=== PATIENT | male | born 1995 | race African-American/Black ===

== ENCOUNTER 2017-08-17 10:23 | Emergency (ER) | payer OTHER, MEDICAID ==
[2017-08-17 10:32] VITALS: BP 148/79
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
== END 2017-08-17 12:36 | disposition home or self-care (01) ==
LOC: ER 10:23
DX: M54.2 Cervicalgia (principal); M54.6 Pain in thoracic spine; M79.1 Myalgia; V89.2XXA Person injured in unspecified motor-vehicle accident, traffic, initial encounter
CPT/HCPCS: 72125; 72128; 99283

== ENCOUNTER 2017-09-29 09:37 | Emergency (ER) | payer OTHER, MEDICAID ==
[2017-09-29 10:02] VITALS: BP 122/76
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
[2017-09-29] MEDS ORDERED: ACETAMINOPHEN 325 MG TABLET PO ONE (11:19)
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
== END 2017-09-29 13:26 | disposition home or self-care (01) ==
LOC: ER 09:37
DX: S80.11XA Contusion of right lower leg, initial encounter (principal); M54.5 Low back pain; M62.830 Muscle spasm of back; M54.2 Cervicalgia; M79.604 Pain in right leg; V87.7XXA Person injured in collision between other specified motor vehicles (traffic), initial encounter; F17.200 Nicotine dependence, unspecified, uncomplicated
CPT/HCPCS: 72110; 99283

== ENCOUNTER 2018-01-20 09:05 | Emergency (ER) | payer MEDICAID, OTHER ==
[2018-01-20 09:12] VITALS: BP 126/91
[2018-01-20] MEDS ORDERED: DEXAMETHASONE SOD PHOS INJ 10 MG/1 ML VIAL IM ONE (09:28)
--- NOTE | 2018-01-20 09:32 | ER Document Report ---
HPI - HPI Pain Level: 2 Notes: Patient is a 22-year-old male with a history of hypertension who presents to the ED complaining of nasal congestion/discharge, sore throat, left ear pain 4 days. Patient states that his ear hurts the worse between that and the throat. He is still able to eat and drink, but does have a decreased p.o. intake. He is urinating normally and having normal bowel movements. Denies any drug allergies, smoking, IV drug use. No other concerns or complaints at this time. Denies any headache, fever, neck pain, changes in vision/speech/mentation/ hearing, chest pain, palpitations, syncope, cough, shortness of breath, wheeze, dyspnea, abdominal pain, nausea/vomiting/diarrhea, urinary retention, dysuria, hematuria, or rash. - ROS Systems Reviewed and Negative: Yes All other systems reviewed and negative Past Medical History - Social History Smoking Status: Never Smoker Family History: Reviewed & Not Pertinent Renal/ Medical History: Denies: Hx Peritoneal Dialysis Vertical Provider Document - CONSTITUTIONAL Agree With Documented VS: Yes Notes: PHYSICAL EXAMINATION: GENERAL: Well-appearing, well-nourished and in no acute distress. A&Ox4. Answers questions appropriately. Moves comfortably w/o notable distress HEAD: Atraumatic, normocephalic. EYES: Pupils equal round and reactive to light, extraocular movements intact, sclera anicteric, conjunctiva are normal. ENT: EAC clear b/l. Lt TM erythemic, bulging. Rt TM wnl. Nares patent and with clear discharge. oropharynx mild erythema without exudates. 2+ tonsilar hypertrophy with erythema no exudate. No palatine shift. Uvula midline. No tongue protrusion. No drooling, hoarseness, or airway compromise. Moist mucous membranes. No sinus tenderness. NECK: Normal range of motion, supple without lymphadenopathy. No rigidity/ meningismus. LUNGS: Breath sounds clear to auscultation bilaterally and equal. No wheezes rales or rhonchi. No retractions HEART: Regular rate and rhythm without murmurs, rubs, gallops. ABDOMEN: Soft, nontender, nondistended abdomen. No guarding, no rebound. No masses appreciated. Normal bowel sounds present. No CVA tenderness bilaterally. No hepatosplenomegaly. NEUROLOGICAL: Normal speech, normal gait. PSYCH: Normal mood, normal affect. SKIN: Warm, Dry, normal turgor, no rashes or lesions noted. - INFECTION CONTROL TRAVEL OUTSIDE OF THE [place] IN LAST 30 DAYS: No Course - Re-evaluation Re-evalutation: 01/20/18 09:29 Patient is an afebrile, well-hydrated, 22-year-old male who presents to the ED with acute otitis media of the left ear as well as an acute pharyngitis. Vitals are acceptable. PE is otherwise unremarkable. Patient does not have any significant tachycardia, tachypnea, or hypoxia. He is nontoxic-appearing and is tolerating p.o. without difficulties. Decadron given IM today. I will not be testing for strep at this time as I will be covering him for his ear infection which will ultimately cover strep. No other labs or imaging warranted at this time based on H&P. Low suspicion for any meningitis, sepsis, peritonsillar/pharyngeal abscess, respiratory compromise, Tucker's, or other emergent systemic condition at this time. Patient is aware this condition can change from initial presentation and he needs to monitor symptoms closely. Rx for amoxicillin. Conservative measures otherwise for symptoms. Recheck with your PCM in 3-5 days. Return to the ED with any worsening/concerning symptoms otherwise as reviewed in discharge. Patient is in agreement. - Vital Signs Vital signs: Temp Pulse Resp BP Pulse Ox 98.8 F 92 16 126/91 H 97 01/20/18 09:11 01/20/18 09:11 01/20/18 09:11 01/20/18 09:11 01/20/18 09:11 Discharge - Discharge Clinical Impression: Acute otitis media Qualifiers: Otitis media type: unspecified Qualified Code(s): H66.90 - Otitis media, unspecified, unspecified ear Acute pharyngitis Qualifiers: Pharyngitis/tonsillitis etiology: unspecified etiology Qualified Code(s): J02.9 - Acute pharyngitis, unspecified Condition: Stable Disposition: HOME, SELF-CARE Instructions: Otitis Media ([facility]), Sore Throat ([facility]) Additional Instructions: Maintain adequate fluid intake Take meds as directed Salt water gargles, throat sprays, mouthwash rinse, peroxide gargles tylenol/ibuprofen as needed Keep ears clean, avoid q-tips inside of ears New toothbrush tomorrow evening over the counter cold medication as needed for symptoms F/u: with your PCM in 3-5 days for a recheck Consider consult with ENT for ongoing/worsening symptoms Return to the ED with any fever, worsening pain, chest pain, neck pain/stiffness , shortness of breath, cough, drooling, trouble swallowing/breathing, abdominal pain, n/v/d, rash, or worsening/concerning symptoms otherwise. Prescriptions: Amoxicillin Trihydrate [Amoxil 875 mg Tablet] 1 tab PO BID #20 tablet Forms: Elevated Blood Pressure Referrals: KAREEN EVANS DO [ASSOCIATE] - Follow up as needed JAKUB ARBOLEDA DO [Primary Care Provider] - Follow up in 3-5 days
== END 2018-01-20 09:50 | disposition home or self-care (01) ==
LOC: ER 09:05
DX: H66.92 Otitis media, unspecified, left ear (principal); J02.9 Acute pharyngitis, unspecified; R09.81 Nasal congestion; I10 Essential (primary) hypertension
CPT/HCPCS: 99282; 96372; J1100

== ENCOUNTER 2018-04-14 21:52 | Emergency (ER) | payer MEDICAID, OTHER ==
[~2018-04-14 21:52] MED LIST: ROCURONIUM BROMIDE INJ 50 MG/5 ML VIAL IV ONE
[2018-04-14] MEDS ORDERED: PROPOFOL 1,000 MG/100 ML INFUS..BTL IV ONE (22:10)
[2018-04-14] MEDS ORDERED: NORMAL SALINE 1000 ML 1,000 ML IV ONE (22:26)
[2018-04-14] MEDS ORDERED: KETAMINE HCL INJ 500 MG/10 ML VIAL IV ONE ×2 (22:27→23:40)
[2018-04-14] MEDS ORDERED: PROPOFOL 1,000 MG/100 ML INFUS..BTL IV PRN (22:27)
[2018-04-14 22:46] LABS: HEMATOCRIT 49.9 % (37.9-51.0); HEMOGLOBIN 16.1 g/dL (13.5-17.0); MEAN CORPUSCULAR HEMOGLOBIN 27.6 pg (27.0-33.4); MEAN CORPUSCULAR HGB CONC 32.3 g/dL (32.0-36.0); MEAN CORPUSCULAR VOLUME 85 fl (80-97); PLATELET COUNT 299 10^3/uL (150-450); RED BLOOD COUNT 5.85 10^6/uL (4.35-5.55); RED CELL DISTRIBUTION WIDTH 14.4 % (11.5-14.0); WHITE BLOOD COUNT 21.6 10^3/uL (4.0-10.5)
[2018-04-14 22:54] LABS: ALANINE AMINOTRANSFERASE 81 U/L (21-72); ALBUMIN 4.7 g/dL (3.5-5.0); ALKALINE PHOSPHATASE 77 U/L (38-126); ASPARTATE AMINO TRANSFERASE 140 U/L (17-59); BILIRUBIN,DIRECT 0.4 mg/dL (0.0-0.4); BILIRUBIN,TOTAL 0.4 mg/dL (0.2-1.3); BLOOD UREA NITROGEN 14 mg/dL (7-20); CALCIUM 9.8 mg/dL (8.4-10.2); GLUCOSE 159 mg/dL (75-110); TOTAL PROTEIN 8.1 g/dL (6.3-8.2)
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
[2018-04-14 23:03] LABS: ABSOLUTE LYMPHOCYTES# (MANUAL) 7.1 10^3/uL (0.5-4.7); ABSOLUTE MONOCYTES # (MANUAL) 1.1 10^3/uL (0.1-1.4); BAND NEUTROPHILS % (MANUAL) 1 % (3-5); BASOPHILS % (MANUAL) 0 % (0-2); EOSINOPHILS % (MANUAL) 2 % (0-6); LYMPHOCYTES % (MANUAL) 31 % (13-45); MONOCYTES % (MANUAL) 5 % (3-13); SEGMENTED NEUTROPHILS % (MAN) 59 % (42-78); TOTAL CELLS COUNTED 100
[2018-04-14 23:06] LABS: ANISOCYTOSIS SLIGHT; PLATELET COMMENT ADEQUATE; TOXIC GRANULATION SLIGHT
[2018-04-14 23:07] LABS: CARBON DIOXIDE 13 mmol/L (22-30); CHLORIDE 104 mmol/L (98-107); POTASSIUM 3.8 mmol/L (3.6-5.0); SODIUM 142.5 mmol/L (137-145)
[2018-04-14 23:08] LABS: ALCOHOL < 10 mg/dL (NONE DETECTED); ANION GAP 26 (5-19)
[2018-04-14] MEDS ORDERED: LEVETIRACETAM 1000 MG/NACL-ISO 1,000 MG/100 ML RTUPB IV ONE ×2 (23:13→23:14)
[2018-04-14] MEDS ORDERED: KETAMINE HCL INJ 500 MG/10 ML VIAL IM ONE (23:16)
[2018-04-14] MEDS ORDERED: LEVETIRACETAM INJ/PF 500 MG/5 ML SDV IV ONE (23:17)
--- NOTE | 2018-04-14 23:22 | RADIOLOGY REPORT (SQ) ---
PROCEDURE: XR CHEST 1 VIEW HISTORY: intubated COMPARISON: None TECHNIQUE: The study was done on 04/14/2018 at 10:19 PM Single projection of the chest was done. FINDINGS: The tip of the endotracheal tube is at the mana and needs to be retracted for approximately 2 cm. The tip of the orogastric tube terminates in the fundus of the stomach . There are no discrete airspace infiltrates, pneumothoraces or pleural effusions. The pulmonary vascularity is normal. The cardiomediastinal silhouette is unremarkable for patient's age and sex. IMPRESSION: The tip of the endotracheal tube is at the mana and needs to be retracted for approximately 2 cm. The tip of the orogastric tube terminates in the fundus of the stomach . There is no acute pleural-parenchymal process seen in the imaged lung medina.
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
[2018-04-14] MEDS ORDERED: KETAMINE HCL INJ 500 MG/10 ML VIAL ONE (23:38)
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
[2018-04-15 06:18] VITALS: BP 154/97
== END 2018-04-14 23:30 | disposition short-term general hospital (02) ==
LOC: ER 21:52
PROC: 0BH17EZ Insertion of Endotracheal Airway into Trachea, Via Natural or Artificial Opening (ICD-10-PCS; principal; 2018-04-14)
DX: S09.90XA Unspecified injury of head, initial encounter (principal); R41.82 Altered mental status, unspecified; R22.0 Localized swelling, mass and lump, head; R04.0 Epistaxis; R00.0 Tachycardia, unspecified; V87.7XXA Person injured in collision between other specified motor vehicles (traffic), initial encounter
CPT/HCPCS: 99291; 96360; 86900; 86901; 36415; 86850; 80307; 85025; 80053; 71045; 70450; 70486; 71260; 72125; 74177; 31500; J3490 ×2; J2704; J7030

== ENCOUNTER 2018-06-07 07:06 | Emergency (ER) | payer MEDICAID ==
[2018-06-07 07:12] VITALS: BP 142/81
[2018-06-07] MEDS ORDERED: IBUPROFEN 800 MG TABLET PO ONE (07:33)
--- NOTE | 2018-06-07 07:33 | ER Document Report ---
HPI - HPI Patient complains to provider of: Sore throat Pain Level: 4 Context: Patient is a 23-year-old male presenting to the emergency department complaining of a sore throat. Patient states for the last 3 days he has had a sore throat, cough, and congestion. Patient denies fever, nausea, vomiting, diarrhea. Patient states he has been taking TheraFlu for the discomfort, states last time he took it was 2200 hrs. last night. Patient denies shortness of breath, chest pain, abdominal pain. Past medical history: ADHD, bipolar, hypertension Medications: Lisinopril, Lamictal, Vyvanse Allergies: None Surgical history: None Patient denies illicit drug use, denies EtOH use, denies smoking cigarettes. - CONSTITUTIONAL Constitutional: DENIES: Fever, Chills - EENT EENT: REPORTS: Sore Throat - NEURO Neurology: DENIES: Headache - RESPIRATORY Respiratory: REPORTS: Coughing - GASTROINTESTINAL Gastrointestinal: DENIES: Abdominal Pain Past Medical History - General Information source: Patient - Social History Smoking Status: Never Smoker Chew tobacco use (# tins/day): No Frequency of alcohol use: None Drug Abuse: None Lives with: Family Family History: Reviewed & Not Pertinent Patient has suicidal ideation: No Patient has homicidal ideation: No - Past Medical History Cardiac Medical History: Reports: Hx Hypertension Renal/ Medical History: Denies: Hx Peritoneal Dialysis Psychiatric Medical History: Reports: Hx Attention Deficit Hyperactivity Disorder, Hx Bipolar Disorder Vertical Provider Document - CONSTITUTIONAL Agree With Documented VS: Yes Notes: GENERAL: Alert, interacts well. No acute distress. HEAD: Normocephalic, atraumatic. EYES: Pupils equal, round, and reactive to light. Extraocular movements intact. ENT: Oral mucosa moist, tongue midline. Nares patent, swollen turbinates bilaterally, TM's intact, no erythema or bulging. Tonsils +2 bilaterally, minor erythema noted, no palatal petechiae or exudate noted NECK: Full range of motion. Supple. Trachea midline. No lymphadenopathy appreciated LUNGS: Clear to auscultation bilaterally, no wheezes, rales, or rhonchi. No respiratory distress. HEART: Regular rate and rhythm. No murmur ABDOMEN: Soft, non-tender. Non-distended. Bowel sounds present in all 4 quadrants. EXTREMITIES: Moves all 4 extremities spontaneously. No edema, normal radial and dorsalis pedis pulses bilaterally. No cyanosis. BACK: no cervical, thoracic, lumbar midline tenderness. No saddle anesthesia, normal distal neurovascular exam. NEUROLOGICAL: Alert and oriented x3. Normal speech. cranial nerves II through XII grossly intact. PSYCH: Normal affect, normal mood. SKIN: Warm, dry, normal turgor. No rashes or lesions noted. - INFECTION CONTROL TRAVEL OUTSIDE OF THE [place] IN LAST 30 DAYS: No Course - Re-evaluation Re-evalutation: 06/07/18 08:12 rapid strep negative. Will treat for swollen turbinates and cough. Discussed viral pharyngitis with patient at bedside. Discussed return precautions. - Vital Signs Vital signs: Temp Pulse Resp BP Pulse Ox 97.7 F 84 18 142/81 H 97 06/07/18 07:10 06/07/18 07:10 06/07/18 07:10 06/07/18 07:10 06/07/18 07:10 Discharge - Discharge Clinical Impression: Upper respiratory infection Qualifiers: URI type: unspecified viral URI Qualified Code(s): J06.9 - Acute upper respiratory infection, unspecified Pharyngitis Qualifiers: Pharyngitis/tonsillitis etiology: unspecified etiology Qualified Code(s): J02.9 - Acute pharyngitis, unspecified Condition: Stable Disposition: HOME, SELF-CARE Instructions: Sore Throat ([facility]), Upper Respiratory Illness ([facility]), Viral Syndrome ([facility]) Additional Instructions: As we discussed your rapid strep test was negative for bacteria. This means it is viral pharyngitis. Viruses do not respond to antibiotics. Please take cough medicine and nasal spray as directed. Please return to the emergency room for any other worsening symptom. Please make an appointment with your primary care provider in the next 24-48 hours. Prescriptions: Benzonatate [Tessalon Perles 100 mg Capsule] 100 mg PO Q8HP PRN #40 capsule PRN Reason: Mometasone Furoate [Nasonex] 1 spray NS Q12 #1 spray.pump Referrals: JAKUB ARBOLEDA DO [Primary Care Provider] - Follow up as needed
== END 2018-06-07 08:15 | disposition home or self-care (01) ==
LOC: ER 07:06
DX: J06.9 Acute upper respiratory infection, unspecified (principal); B97.89 Other viral agents as the cause of diseases classified elsewhere; J02.9 Acute pharyngitis, unspecified; R05 Cough; I10 Essential (primary) hypertension; F90.9 Attention-deficit hyperactivity disorder, unspecified type; F31.9 Bipolar disorder, unspecified; Z79.899 Other long term (current) drug therapy
CPT/HCPCS: 99283; 87070; 87880; J3490

== ENCOUNTER 2019-02-16 00:29 | Emergency (ER) | payer MEDICAID ==
--- NOTE | 2019-02-16 01:14 | ER Document Report ---
ED General - General Chief Complaint: Sore Throat Stated Complaint: SORE THROAT Time Seen by Provider: 02/16/19 01:03 Primary Care Provider: JAKUB ARBOLEDA DO [Primary Care Provider] - Follow up as needed TRAVEL OUTSIDE OF THE [place] IN LAST 30 DAYS: No - HPI Notes: 23-year-old male to the emergency department with complaints of sore throat for the past week. He also admits to bilateral ear pain and enlarged lymph nodes. He does endorse a slight cough but predominantly his throat is been bothering him. He denies any fevers. He reports that his mother has had strep throat. Denies any other complaints. Denies any voice changes, drooling, difficulty swallowing, shortness of breath. - Related Data Allergies/Adverse Reactions: No Known Allergies Allergy (Verified 02/16/19 00:30) Past Medical History - General Information source: Patient - Social History Smoking Status: Never Smoker Chew tobacco use (# tins/day): No Frequency of alcohol use: None Drug Abuse: None Family History: Reviewed & Not Pertinent Patient has suicidal ideation: No Patient has homicidal ideation: No - Past Medical History Cardiac Medical History: Reports: Hx Hypertension Renal/ Medical History: Denies: Hx Peritoneal Dialysis Psychiatric Medical History: Reports: Hx Attention Deficit Hyperactivity Disorder, Hx Bipolar Disorder Review of Systems - Review of Systems Constitutional: denies: Chills, Fever EENT: Ear pain, Throat pain. denies: Nose congestion Cardiovascular: denies: Chest pain, Dizziness, Lightheaded, Edema Respiratory: Cough. denies: Short of breath Gastrointestinal: denies: Abdominal pain, Diarrhea, Nausea, Vomiting Genitourinary: No symptoms reported Skin: No symptoms reported Neurological/Psychological: No symptoms reported -: Yes All other systems reviewed and negative Physical Exam - Vital signs Vitals: Temp Pulse Resp BP Pulse Ox 97.5 F 98 20 142/91 H 99 02/16/19 00:32 02/16/19 00:32 02/16/19 00:32 02/16/19 00:32 02/16/19 00:32 Interpretation: Hypertensive - General General appearance: Appears well In distress: None Notes: Obesity - HEENT Head: Normocephalic Eyes: Normal Cornea: Normal Pupils: PERRL Ears: Normal External canal: Normal Tympanic membrane: Normal Sinus: Normal Nasal: Normal Mouth/Lips: Normal Mucous membranes: Normal Pharynx: Erythema, Exudate, Tonsillar hypertrophy - There is symmetric bilateral tonsillar hypertrophy, 2+. There is no evidence of peritonsillar abscess. There is noted beefy erythema with exudate to bilateral tonsils. There is no drooling. No hot potato voice. No Tucker's angina. Airway is grossly patent. No: Peritonsillar abscess, Post nasal drainage, Retropharyngeal abscess, Uvular edema Neck: Other - Positive bilateral tender anterior lymphadenopathy. No meningeal signs. - Respiratory Respiratory status: No respiratory distress Chest status: Nontender Breath sounds: Normal. No: Rales, Rhonchi, Stridor, Wheezing Chest palpation: Normal - Cardiovascular Rhythm: Regular Heart sounds: Normal auscultation Murmur: No - Neurological Neuro grossly intact: Yes Cognition: Normal Orientation: AAOx4 [place] Coma Scale Eye Opening: Spontaneous [place] Coma Scale Verbal: Oriented [place] Coma Scale Motor: Obeys Commands [place] Coma Scale Total: 15 Speech: Normal Motor strength normal: LUE, RUE, LLE, RLE Sensory: Normal - Psychological Associated symptoms: Normal affect, Normal mood - Skin Skin Temperature: Warm Skin Moisture: Dry Skin Color: Normal Course - Vital Signs Vital signs: Temp Pulse Resp BP Pulse Ox 97.5 F 98 20 142/91 H 99 02/16/19 00:32 02/16/19 00:32 02/16/19 00:32 02/16/19 00:32 02/16/19 00:32 - Transfer of Care Notes: 02/16/19 01:25 Impression: Strep throat. Given patient's exam and his history to include a positive sick contact do not think he needs testing today and we will go ahead and treat. We will also write for Motrin and a Medrol Dosepak. There is no evidence for peritonsillar abscess and no Tucker's angina. Encouraged to return if any worsening shortness of breath, difficulty swallowing, drooling, or any other concerns. Patient agrees with the plan. Will discharge home Discharge - Discharge Clinical Impression: Strep throat, Sore throat, Elevated blood pressure reading Condition: Stable Disposition: HOME, SELF-CARE Instructions: Strep Throat ([facility]) Additional Instructions: COMPLETE ALL ANTIBIOTICS. RETURN IF WORSE -- IF YOU HAVE WORSENING SORE THROAT, DROOLING, OR DIFFICULTY SWALLOWING, OR SHORTNESS OF BREATH. FOLLOW UP WITH PRIMARY CARE. Prescriptions: Ibuprofen [Motrin 600 mg Tablet] 600 mg PO Q8HP PRN #20 tablet PRN Reason: Amoxicillin Trihydrate [Amoxil 875 mg Tablet] 1 tab PO BID #20 tablet Methylprednisolone [Medrol Dosepack (4 mg/Tab) 21 Tab/Dosepak] 4 mg PO ASDIR PRN #21 tab.ds.pk PRN Reason: Forms: Return to Work Referrals: JAKUB ARBOLEDA DO [Primary Care Provider] - Follow up in 1 week
[2019-02-16 01:30] VITALS: BP 138/89
== END 2019-02-16 01:29 | disposition home or self-care (01) ==
LOC: ER 00:29
DX: J02.0 Streptococcal pharyngitis (principal); R03.0 Elevated blood-pressure reading, without diagnosis of hypertension; H92.03 Otalgia, bilateral; R59.9 Enlarged lymph nodes, unspecified; R05 Cough
CPT/HCPCS: 99282

== ENCOUNTER 2019-09-03 21:15 | Emergency (ER) | payer MEDICAID, OTHER ==
[2019-09-03 21:30] VITALS: BP 135/99
[2019-09-03] MEDS ORDERED: ONDANSETRON 4 MG TAB.RAPDIS PO ONE (21:53)
[2019-09-03] MEDS ORDERED: KETOROLAC TROMETHAMINE 60 MG/2 ML SDV IM ONE (21:54)
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
[2019-09-03 22:26] LABS: ABSOLUTE BASOPHILS # (AUTO) 0.1 10^3/uL (0.0-0.2); ABSOLUTE LYMPHOCYTES (AUTO) 0.9 10^3/uL (0.5-4.7); ABSOLUTE MONOCYTES (AUTO) 0.2 10^3/uL (0.1-1.4); ABSOLUTE NEUT (AUTO) 7.9 10^3/uL (1.7-8.2); BASOPHILS % (AUTO) 0.6 % (0-2); HEMATOCRIT 48.7 % (37.9-51.0); HEMOGLOBIN 16.6 g/dL (13.5-17.0); LYMPHOCYTES % (AUTO) 10.1 % (13-45); MEAN CORPUSCULAR HEMOGLOBIN 27.5 pg (27.0-33.4); MEAN CORPUSCULAR HGB CONC 34.2 g/dL (32.0-36.0); MEAN CORPUSCULAR VOLUME 80 fl (80-97); MONOCYTES % (AUTO) 2.6 % (3-13); PLATELET COUNT 232 10^3/uL (150-450); RED BLOOD COUNT 6.06 10^6/uL (4.35-5.55); SEGMENTED NEUTROPHILS % (AUTO) 86.7 % (42-78); TOTAL CELLS COUNTED % (AUTO) 100 %; WHITE BLOOD COUNT 9.2 10^3/uL (4.0-10.5)
[2019-09-03 22:45] LABS: ALBUMIN 4.4 g/dL (3.5-5.0); ALKALINE PHOSPHATASE 103 U/L (38-126); ANION GAP 11 (5-19); ASPARTATE AMINO TRANSFERASE 21 U/L (17-59); BILIRUBIN,DIRECT 0.3 mg/dL (0.0-0.4); BILIRUBIN,TOTAL 0.5 mg/dL (0.2-1.3); BLOOD UREA NITROGEN 18 mg/dL (7-20); CALCIUM 10.1 mg/dL (8.4-10.2); CARBON DIOXIDE 25 mmol/L (22-30); CHLORIDE 102 mmol/L (98-107); GLUCOSE 123 mg/dL (75-110); TOTAL PROTEIN 8.2 g/dL (6.3-8.2)
--- NOTE | 2019-09-03 22:54 | RADIOLOGY REPORT (SQ) ---
EXAM DESCRIPTION: PA and lateral radiographs of the chest CLINICAL HISTORY: 24 years Male, cp COMPARISON: [facility] portable chest 04/14/2018 FINDINGS: Lungs: Lungs are clear. No pleural effusion. No pneumothorax. Mediastinum: Cardiac and mediastinal silhouette are normal. Bones: Fracture of the right clavicle is noted with marked inferior displacement of the distal clavicle with respect to the proximal clavicle. IMPRESSION: 1. No acute process within the chest. 2. Right clavicle fracture with marked displacement.
--- NOTE | 2019-09-04 10:39 | EKG REPORT ---
SEVERITY:- NORMAL ECG - SINUS RHYTHM : Confirmed by: Candelario Epperson MD 04-Sep-2019 10:39:42
== END 2019-09-04 00:29 | disposition left against medical advice (07) ==
LOC: ER 21:15
DX: Z53.21 Procedure and treatment not carried out due to patient leaving prior to being seen by health care provider (principal); R07.9 Chest pain, unspecified; M54.9 Dorsalgia, unspecified; I10 Essential (primary) hypertension
CPT/HCPCS: 93005; 99281; 96372; 36415; 85025; 80053; 84484; 71046; 93010; J1885; S0119

== ENCOUNTER 2020-05-21 06:10 | Emergency (ER) | payer MEDICAID ==
[2020-05-21 07:00] LABS: A TYPE INFLUENZA AG NEGATIVE (NEGATIVE)
[2020-05-21 07:01] LABS: B INFLUENZA AG NEGATIVE (NEGATIVE)
--- NOTE | 2020-05-21 08:12 | ER Document Report ---
ED General - General Chief Complaint: Flu Symptoms Stated Complaint: COUGH,CONGESTION,SHORTNESS OF BREATH Time Seen by Provider: 05/21/20 08:06 TRAVEL OUTSIDE OF THE [place] IN LAST 30 DAYS: No - HPI Notes: 25-year-old male with past medical history of hypertension and depression to the emergency department with complaints of 4 days of cough, sore throat, body aches, shortness of breath. He denies any fevers, chills, chest pain, leg swelling, nausea, vomiting, abdominal pain. He states that he has not been around anybody is tested positive for COVID-19. Is not currently working. He does admit that he has not been wearing a mask at a public. He states that his throat hurts the worst. He took TheraFlu last night but still is feeling pretty poorly. The patient was evaluated during the global COVID 19 pandemic, and that diagnosis was suspected/considered upon their initial presentation. Their evaluation, treatment, and testing was consistent with current guidelines for patients who present with complaints or symptoms that may be related to COVID- 19. - Related Data Allergies/Adverse Reactions: No Known Allergies Allergy (Verified 03/09/19 07:53) Home Medications: lisinopril. sinus medicine Past Medical History - General Information source: Patient - Social History Smoking Status: Former Smoker Chew tobacco use (# tins/day): No Frequency of alcohol use: None Drug Abuse: Marijuana Family History: Reviewed & Not Pertinent Patient has homicidal ideation: No - Past Medical History Cardiac Medical History: Reports: Hx Hypertension Renal/ Medical History: Denies: Hx Peritoneal Dialysis Psychiatric Medical History: Reports: Hx Attention Deficit Hyperactivity Disorder, Hx Bipolar Disorder Traumatic Medical History: Reports: Hx Fractures Review of Systems - Review of Systems Constitutional: Malaise, Other - Body aches. denies: Chills, Fever EENT: Nose congestion, Nose discharge, Throat pain. denies: Ear pain, Throat swelling Cardiovascular: denies: Chest pain, Palpitations, Heart racing, Orthopnea, Dyspnea, Syncope, Lightheaded Respiratory: Cough, Short of breath. denies: Hurts to breathe, Wheezing Gastrointestinal: denies: Abdominal pain, Diarrhea, Nausea, Vomiting Genitourinary: No symptoms reported Musculoskeletal: Muscle pain - Body aches. denies: Back pain Skin: No symptoms reported Hematologic/Lymphatic: No symptoms reported Neurological/Psychological: Headaches -: Yes All other systems reviewed and negative Physical Exam - Vital signs Vitals: Temp Pulse Resp BP Pulse Ox 98.5 F 85 20 142/87 H 99 05/21/20 06:22 05/21/20 06:22 05/21/20 06:22 05/21/20 06:22 05/21/20 06:22 Interpretation: Normal - General General appearance: Appears well, Alert In distress: None Notes: Massively obese - HEENT Head: Normocephalic, Atraumatic Eyes: Normal Pupils: PERRL Ears: Normal External canal: Normal. No: Blood in canal, Cerumen impaction, Erythema Tympanic membrane: Normal. No: Bulging, Hemotympanum, Perforation Sinus: Normal Nasal: Other - Clear rhinorrhea Mouth/Lips: Normal. No: Angioedema, Caries Mucous membranes: Normal Pharynx: Erythema, Exudate - To the posterior oropharynx there is erythema with symmetric tonsillar hypertrophy is about 1+ with exudates. No uvular edema. No [place]anaco's angina. No hot potato voice. No evidence for peritonsillar abscess. Airway is grossly patent., Tonsillar hypertrophy. No: Peritonsillar abscess, Uvular edema, Potential airway comprom. Neck: Normal, Supple. No: Lymphadenopathy - Respiratory Respiratory status: No respiratory distress Chest status: Nontender. No: Accessory muscle use, Prolonged expirations Breath sounds: Normal, Nonproductive cough. No: Rales, Rhonchi, Wheezing Chest palpation: Normal - Cardiovascular Rhythm: Regular Heart sounds: Normal auscultation Murmur: No Notes: No leg edema - Abdominal Inspection: Normal, Morbidly Obese Distension: No distension Bowel sounds: Normal Tenderness: Nontender. 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 No: Pronator drift Sensory: Normal - Psychological Associated symptoms: Normal affect, Normal mood - Skin Skin Temperature: Warm Skin Moisture: Dry Skin Color: Normal Course - Re-evaluation Re-evalutation: 05/21/20 09:40 Patient was provided with discharge information including: As a person under investigation for COVID-19, [facility], division of public health advises you to adhere to the following guidance until your test results are reported to you. If your test result is positive, you will receive additional information from your provider and your local health department at that time. Remain at home until you are cleared by the healthcare provider public health authorities. Keep a log of visitors to your home and notify any visitors to your home of your isolation status. If you plan to move to a new address or leave the country, notify the local health department and your County. Call your doctor or seek care if you have an urgent medical need. Before seeking medical care, call ahead to get instructions from the provider before arriving at the medical office, clinic, or hospital. Notify them that you are being tested for the virus that causes COVID-19 so that arrangements can be made, as necessary, to prevent transmission to others in the healthcare setting. Next, notify the local health department and your County. If a medical emergency arises and you need to call 911, informed the first responders that you are being tested for the virus that causes COVID-19. Next, notified the [facility] department and your County. Impression: Tonsillitis, cough, body aches. Patient exhibits a flulike syndrome. He was tested for COVID. His oropharyngeal exam is consistent with an acute tonsillitis so we will start on azithromycin. He is encouraged to return if he gets worse. Have given him specific instructions on COVID-19 and that he will need to quarantine for the next 2 weeks. Patient agrees with the plan. Will discharge home. Labs are reassuring, vital signs are stable. Chest x-ray negative. - Vital Signs Vital signs: Temp Pulse Resp BP Pulse Ox 98.3 F 85 20 142/87 H 99 05/21/20 06:24 05/21/20 06:22 05/21/20 06:22 05/21/20 06:22 05/21/20 06:22 - Laboratory Result Diagrams: 05/21/20 08:40 05/21/20 08:40 Laboratory results interpreted by me: 05/21/20 08:40 RBC 5.57 H Laboratory 05/21/20 05/21/20 05/21/20 06:30 06:30 08:40 WBC 5.9 RBC 5.57 H Hgb 15.6 Hct 45.7 MCV 82 MCH 28.0 MCHC 34.2 RDW 13.5 Plt Count 186 Lymph % (Auto) 19.8 [place] % (Auto) 5.6 Eos % (Auto) 1.3 Baso % (Auto) 0.7 Absolute Neuts (auto) 4.3 Absolute Lymphs (auto) 1.2 Absolute Monos (auto) 0.3 Absolute Eos (auto) 0.1 Absolute Basos (auto) 0.0 Seg Neutrophils % 72.6 Sodium Potassium Chloride Carbon Dioxide Anion Gap BUN Creatinine Est GFR ( Amer) Est GFR (MDRD) Non-Af Glucose Calcium Total Bilirubin Direct Bilirubin Neonat Total Bilirubin Neonat Direct Bilirubin Neonat Indirect Bili AST ALT Alkaline Phosphatase Total Protein Albumin Influenza A (Rapid) NEGATIVE Influenza B (Rapid) NEGATIVE Group A Strep Rapid NEGATIVE 05/21/20 08:40 WBC RBC Hgb Hct MCV MCH MCHC RDW Plt Count Lymph % (Auto) [place] % (Auto) Eos % (Auto) Baso % (Auto) Absolute Neuts (auto) Absolute Lymphs (auto) Absolute Monos (auto) Absolute Eos (auto) Absolute Basos (auto) Seg Neutrophils % Sodium 137.7 Potassium 4.5 Chloride 103 Carbon Dioxide 26 Anion Gap 9 BUN 15 Creatinine 0.91 Est GFR ( Amer) > 60 Est GFR (MDRD) Non-Af > 60 Glucose 105 Calcium 9.5 Total Bilirubin 0.5 Direct Bilirubin 0.2 Neonat Total Bilirubin Not Reportable Neonat Direct Bilirubin Not Reportable Neonat Indirect Bili Not Reportable AST 22 ALT 18 Alkaline Phosphatase 74 Total Protein 7.1 Albumin 4.2 Influenza A (Rapid) Influenza B (Rapid) Group A Strep Rapid Chest X-Ray 05/21/20 00:00 IMPRESSION: NO ACUTE RADIOGRAPHIC FINDING IN THE CHEST. - Diagnostic Test Radiology reviewed: Image reviewed, Reports reviewed Discharge - Discharge Clinical Impression: Sore throat, Cough Acute tonsillitis Qualifiers: Pharyngitis/tonsillitis etiology: unspecified etiology Qualified Code(s): J03.90 - Acute tonsillitis, unspecified Condition: Stable Disposition: HOME, SELF-CARE Instructions: COVID-19 Guidance for Persons Under Investigation, Azithromycin ([facility]), Tonsillitis ([facility]) Additional Instructions: You are seen in the emergency department today for upper respiratory symptoms to include a sore throat, cough. He had a negative chest x-ray for any pneumonia. Your flu and rapid strep were all negative. Your exam suggests an acute tonsillitis. You will be given azithromycin, an antibiotic for this. You were swapped for COVID-19. These results will come back in approximately 4 days. You will need to quarantine and make sure you are aggressively masking yourself. Return if you have worsening symptoms. Obtain a pulse oximeter from local pharmacy and monitor your oxygen level. If you see that your oxygen is going below 92% please return to the emergency department. As a person under investigation for COVID-19, [facility], division of public health advises you to adhere to the following guidance until your test results are reported to you. If your test result is positive, you will receive additional information from your provider and your local health department at that time. Remain at home until you are cleared by the healthcare provider public health authorities. Keep a log of visitors to your home and notify any visitors to your home of your isolation status. If you plan to move to a new address or leave the country, notify the local health department and your County. Call your doctor or seek care if you have an urgent medical need. Before seeking medical care, call ahead to get instructions from the provider before ar riving at the medical office, clinic, or hospital. Notify them that you are being tested for the virus that causes COVID-19 so that arrangements can be made, as necessary, to prevent transmission to others in the healthcare setting. Next, notify the local health department and your County. If a medical emergency arises and you need to call 911, informed the first responders that you are being tested for the virus that causes COVID-19. Next, notified the [facility] health department and your County. Prescriptions: Ibuprofen [Motrin 600 mg Tablet] 600 mg PO Q8HP PRN #24 tablet PRN Reason: Benzonatate [Tessalon Perles 100 mg Capsule] 200 mg PO Q8HP PRN #40 capsule PRN Reason: Azithromycin 500 mg PO DAILY #5 tablet Referrals: [facility] [Outside] - Follow up in 1 week (for follow up)
[2020-05-21] MEDS ORDERED: DEXAMETHASONE CONC 1 MG/ML SOLN PO ONE (08:28)
[2020-05-21] MEDS ORDERED: KETOROLAC TROMETHAMINE 60 MG/2 ML SDV IM ONE (08:28)
--- NOTE | 2020-05-21 08:38 | RADIOLOGY REPORT (SQ) ---
EXAM DESCRIPTION: CHEST SINGLE VIEW IMAGES COMPLETED DATE/TIME: 05/21/2020 7:52 am REASON FOR STUDY: cough COMPARISON: 09/03/2019 EXAM PARAMETERS: NUMBER OF VIEWS: One view. TECHNIQUE: Single frontal radiographic view of the chest acquired. RADIATION DOSE: NA LIMITATIONS: None. FINDINGS: LUNGS AND PLEURA: No opacities, masses or pneumothorax. No pleural effusion. MEDIASTINUM AND HILAR STRUCTURES: No masses. Contour normal. HEART AND VASCULAR STRUCTURES: Heart normal in size. Normal vasculature. BONES: No acute findings. HARDWARE: None in the chest. OTHER: No other significant finding. IMPRESSION: NO ACUTE RADIOGRAPHIC FINDING IN THE CHEST. TECHNICAL DOCUMENTATION: JOB ID: [id number] 2010 [employer]- All Rights Reserved Reading location - IP/workstation name: [email or web address]
[2020-05-21 08:56] LABS: ABSOLUTE EOSINOPHILS # (AUTO) 0.1 10^3/uL (0.0-0.6); ABSOLUTE LYMPHOCYTES (AUTO) 1.2 10^3/uL (0.5-4.7); ABSOLUTE MONOCYTES (AUTO) 0.3 10^3/uL (0.1-1.4); ABSOLUTE NEUT (AUTO) 4.3 10^3/uL (1.7-8.2); BASOPHILS % (AUTO) 0.7 % (0-2); EOSINOPHILS % (AUTO) 1.3 % (0-6); HEMATOCRIT 45.7 % (37.9-51.0); HEMOGLOBIN 15.6 g/dL (13.5-17.0); LYMPHOCYTES % (AUTO) 19.8 % (13-45); MEAN CORPUSCULAR HGB CONC 34.2 g/dL (32.0-36.0); MEAN CORPUSCULAR VOLUME 82 fl (80-97); MONOCYTES % (AUTO) 5.6 % (3-13); PLATELET COUNT 186 10^3/uL (150-450); RED BLOOD COUNT 5.57 10^6/uL (4.35-5.55); RED CELL DISTRIBUTION WIDTH 13.5 % (11.5-14.0); SEGMENTED NEUTROPHILS % (AUTO) 72.6 % (42-78); TOTAL CELLS COUNTED % (AUTO) 100 %; WHITE BLOOD COUNT 5.9 10^3/uL (4.0-10.5)
[2020-05-21 09:15] LABS: ALBUMIN 4.2 g/dL (3.5-5.0); ALKALINE PHOSPHATASE 74 U/L (38-126); ANION GAP 9 (5-19); ASPARTATE AMINO TRANSFERASE 22 U/L (17-59); BILIRUBIN,DIRECT 0.2 mg/dL (0.0-0.4); BILIRUBIN,TOTAL 0.5 mg/dL (0.2-1.3); BLOOD UREA NITROGEN 15 mg/dL (7-20); CALCIUM 9.5 mg/dL (8.4-10.2); CARBON DIOXIDE 26 mmol/L (22-30); CHLORIDE 103 mmol/L (98-107); GLUCOSE 105 mg/dL (75-110); POTASSIUM 4.5 mmol/L (3.6-5.0); TOTAL PROTEIN 7.1 g/dL (6.3-8.2)
[2020-05-21 09:40] VITALS: BP 165/86
== END 2020-05-21 09:45 | disposition home or self-care (01) ==
LOC: ER 06:10
DX: J03.90 Acute tonsillitis, unspecified (principal); R05 Cough; R06.02 Shortness of breath; R53.81 Other malaise; R09.81 Nasal congestion; M79.10 Myalgia, unspecified site; F12.10 Cannabis abuse, uncomplicated; I10 Essential (primary) hypertension; Z79.899 Other long term (current) drug therapy; Z87.891 Personal history of nicotine dependence; Z20.828 Contact with and (suspected) exposure to other viral communicable diseases
CPT/HCPCS: 99284; 96372; 36415; 87070; 87880; 85025; 87635; 80053; 87804; 71045; J1885; J8540; C9803